=== PATIENT | female | born 1985 | race Caucasian/White ===

== ENCOUNTER 2018-05-20 23:00 | Emergency (ER) | payer SELFPAY ==
[~2018-05-20] VITALS: Ht 162.6 cm; Wt 52.6 kg
[2018-05-20 23:14] VITALS: BP 118/74
[2018-05-21] MEDS ORDERED: ONDANSETRON 4 MG TAB.RAPDIS ONE (00:14)
[2018-05-21] MEDS ORDERED: IBUPROFEN 600 MG TABLET PO ONE ×2 (00:14→00:30)
[2018-05-21] MEDS ORDERED: HYDROCODONE/APAP 10/325MG 1 EA TABLET ONE (00:14)
[2018-05-21] MEDS ORDERED: ONDANSETRON 4 MG TAB.RAPDIS SL ONE (00:30)
[2018-05-21] MEDS ORDERED: HYDROCODONE/APAP 10/325MG 1 EA TABLET PO ONE (00:30)
== END 2018-05-21 02:05 | disposition home or self-care (01) ==
LOC: ER 23:02
DX: S59.291A Other physeal fracture of lower end of radius, right arm, initial encounter for closed fracture (principal); S52.611A Displaced fracture of right ulna styloid process, initial encounter for closed fracture; V00.121A Fall from non-in-line roller-skates, initial encounter; Y93.51 Activity, roller skating (inline) and skateboarding; Y92.331 Roller skating rink as the place of occurrence of the external cause; Y99.8 Other external cause status
CPT/HCPCS: 29125; 73090; 73110; 99284; A4606; Q0162